=== PATIENT | male | born 1960 | race Caucasian/White ===

== ENCOUNTER → 2018-11-23 19:10 | Outpatient (CLI) | payer OTHER, SELFPAY ==
--- NOTE | 2018-11-23 19:18 | DI.MRI.S_ITS ---
PROCEDURE: MR LUMBAR SPINE WO CON INDICATIONS: INTERVERTEBRAL DISC DISORDERS WITH RADICULOPATHY TECHNIQUE: Noncontrast sagittal T1 spin echo and T2 fast echo, sagittal STIR, axial T1 and T2 fast spin echo through the lumbar spine. In cases with scoliosis, additional coronal T2 fast spin echo may be performed. COMPARISON: None. FINDINGS: Image quality: Excellent. Alignment and Curvature: There is normal bony alignment. Bone Marrow: Marrow is of normal overall signal. No acute vertebral body compression fractures. Spinal Cord: Conus medullaris terminates at the L1-L2 level. Visualized cord demonstrates normal signal and size. Paraspinous Soft Tissues: No paravertebral masses. L1-L2: Minimal degenerative endplate changes and decreased disc T2 hyperintensity. No significant neuroforaminal stenosis. No significant spinal canal stenosis. L2-L3: Minimal degenerative endplate changes with endplate osteophyte formation. This is more pronounced anteriorly. Minimal circumferential disc bulge. No significant neuroforaminal stenosis. No significant spinal canal stenosis. L3-L4: Mild bilateral facet arthrosis, worse on the right. There are degenerative endplate changes with endplate osteophytes, loss of disc height, and loss of normal disc T2 signal hyperintensity. Eccentric to the right circumferential disc bulge resulting in moderate right neuroforaminal stenosis with effacement of the right foraminal zone and minimal effacement of the right subarticular zone. No significant spinal canal stenosis. No significant left neural foraminal narrowing. L4-L5: Moderate bilateral facet arthrosis. There are degenerative endplate changes with endplate osteophytes, loss of disc height, and loss of normal disc T2 signal hyperintensity. There is circumferential disc bulge with concurrent posterior central disc protrusion measuring approximately 1.4 cm in transverse dimension and extending approximately 8 mm in AP dimension. This causes moderate effacement of the bilateral subarticular zone as well as mild spinal canal stenosis. There is mild bilateral neuroforaminal stenosis. L5-S1: Mild bilateral facet arthropathy. There are degenerative endplate changes with endplate osteophytes, loss of disc height, and loss of normal disc T2 signal hyperintensity. Shallow broad-based posterior disc herniation without significant neural foraminal or spinal canal stenosis. IMPRESSION: Multilevel, multifactorial lumbar spondylosis as described above by vertebral body level. Findings are most pronounced at L3-4 and L4-5. Dictated by: Neymar Partida M.D. on 11/26/2018 at 9:20 Approved by: Neymar Partida M.D. on 11/26/2018 at 9:43
== END ==
PROVIDERS: Visit Provider Family Medicine Geriatric Medicine
DX: M51.16 Intervertebral disc disorders with radiculopathy, lumbar region (principal); M47.26 Other spondylosis with radiculopathy, lumbar region
CPT/HCPCS: 72148

== ENCOUNTER 2019-02-06 13:30 | Emergency (ER) | payer OTHER, MEDICARE, SELFPAY ==
[2019-02-06 13:39] VITALS: BP 124/90; PULSE 99; RESP 14; TEMP 36.8; O2SAT 97
--- NOTE | 2019-02-06 13:46 | ED.BACK ---
HPI - Back Pain/Injury General Chief Complaint: Back Pain/Injury Stated Complaint: LOWER PART OF BACK IS HURTING Time Seen by Provider: 02/06/19 13:35 Source: patient Mode of arrival: Ambulatory Limitations: no limitations History of Present Illness HPI Narrative: 58-year-old male comes to the emergency department with complaint of acute on chronic back pain. Patient states he has had chronic low back issues. He is scheduled to have surgery in the next couple months his low back with neuro surgery and telling him. Patient states that he does not recall any recent trauma or injuries. He states he went outside and down his steps and then on his way back inside after walking some personal objects outside he started having tightening and discomfort increasing in his back particularly on the left side. Patient states that pain does radiate down his leg. He states he has numbness. He states that he feels a little bit weak. Patient states that both the numbness and the weakness are typical for him. He has not had any loss of bowel or bladder control. He is able to ambulate at home and here in the emergency department. He denies any recent fevers or chills. He took some ibuprofen at home which he states was helpful. He denies any other medical issues. Denies any prior surgeries. States he is allergic to penicillin. Denies any history of IV drug abuse. Related Data Previous Rx's Medication Instructions Recorded diazepam [Valium] 10 mg PO TID PRN #14 tab 02/06/19 oxycodone-acetaminophen [Percocet] 1 tab PO QID PRN #14 tab 02/06/19 prednisone 50 mg PO DAILY #5 tab 02/06/19 Allergies Allergy/AdvReac Type Severity Reaction Status Date / Time Penicillins Allergy Verified 02/06/19 13:39 Review of Systems Review of Systems ROS Unobtainable: All systems reviewed & are unremarkable except as noted in HPI and below Patient History Medical History (Updated 02/06/19 @ 14:00 by Bailey Pruitt DO) Low back pain (Acute) Social History Smoking Status: Current every day smoker Smoking Status: Current every day smoker alcohol intake frequency: 0-2 drinks per day Substance Use Type: does not use Exam Narrative Exam Narrative: GEN: well nourished, well appearing male, alert and oriented x 3, patient appears to be in mild distress. HEENT: Atraumatic, pupils are equal round reactive to light, extraocular movements are intact, nares are clear, moist mucous membranes. HEART: Regular rate and rhythm without murmur, clicks, rubs. LUNGS:Lungs clear to auscultation, no wheezes, rales, crackles, chest moves symmetrically ABD:bowel sounds normal, soft, non-tender, no guarding, rebound, rigidity, no masses noted, no hepatosplenomegaly :No CVA tenderness BACK: No cervical, thoracic or lumbar vertebral point tenderness. Patient has mild to moderate discomfort in the left lower lumbar region and just superior to the SI joint. No bony tenderness of the help her pelvis. Patient has nontender the piriformis bilaterally. Patient has decreased range of motion. Patient is able to sit up in the bed unassisted and move and stand but moves slowly. Patient's gait is normal. Rectal exam is deferred. Muscle strength is 5/5 in lower extremities, patient has slightly decreased dorsiflexion on left foot in comparison to right, DTRs are 2/4lower extremities. Dorsalis pedis and tibialis pulses are 2+ and lower extremities. Sensation is intact in the lower extremities to light touch. MSCL: Non-tender, no muscle atrophy, see above. NEURO:CN 2-12 intact, sensation normal SKIN: no rash, no erythema, no skin changes noted on back or extremities. Initial Vital Signs Initial Vital Signs: Vital Signs Temperature 98.2 F 02/06/19 13:39 Pulse Rate 99 H 02/06/19 13:39 Respiratory Rate 14 02/06/19 13:39 Blood Pressure 124/90 02/06/19 13:39 Pulse Oximetry 97 02/06/19 13:39 Course Orders Ordered: ED Orders 02/06/19 13:46 XR lumbar spine 2-3V Stat Discontinued Medications Diazepam (Valium) 10 mg PO NOW ONE Stop: 02/06/19 13:49 Last Admin: 02/06/19 14:02 Dose: 10 mg Documented by: LAMAR Ketorolac Tromethamine (Toradol) 30 mg IM NOW ONE Stop: 02/06/19 15:08 Last Admin: 02/06/19 15:35 Dose: 30 mg Documented by: SUSANA Oxycodone/Acetaminophen (Percocet 5/325) 1 tab PO NOW ONE Stop: 02/06/19 13:49 Last Admin: 02/06/19 14:02 Dose: 1 tab Documented by: LAMAR Vital Signs Vital signs: Vital Signs - 8 hr 02/06/19 13:39 02/06/19 15:00 Temperature 98.2 F Pulse Rate 99 H 87 Respiratory Rate 14 13 Blood Pressure 124/90 Blood Pressure [Left Arm] 108/60 Pulse Oximetry 97 97 [facility] - Back Pain/Injury Imaging Data Lspine xray: Radiologist's Impression: [address] [address] XRay Report Signed Patient: Mick Santoro#: [id number] : 1960Acct:[id number] Age/Sex: 58 / MDate of Service: 02/06/19 Loc: ED Accession Number: [id number] Procedure: XR lumbar spine 2-3V Ordering Provider: Bailey Pruitt D.O. PROCEDURE: XR LUMBAR SPINE 2-3V INDICATIONS: low back pain, acute on chronic, left side TECHNIQUE: 3 views of the lumbar spine were acquired. COMPARISON: [facility], MR, MR LUMBAR SPINE WO CON, 11/23/2018, 19:28. FINDINGS: Bones: 5 [id number] vertebrae are present. There is normal bony alignment. No vertebral body compression fractures. No suspicious bony lesions. Moderate disc space narrowing is seen at the L4-L5 and L5-S1 levels. Associated endplate irregularity and sclerosis are seen. The disc heights otherwise appear well-preserved. Lower lumbar spine facet arthropathy is seen. Age-appropriate lower thoracic spine degenerative changes are seen. Soft tissues: Overlying bowel gas pattern is normal. No suspicious soft tissue calcifications. Atherosclerotic calcification is noted. IMPRESSION: Lower lumbar spine degenerative changes are seen, without an acute abnormality seen by plain film. Dictated by: Moises Garcia M.D. on 02/06/2019 at 13:04 Approved by: Moises Garcia M.D. on 02/06/2019 at 13:05 [facility] Narrative Medical decision making narrative: Patient has multilevel, multifactorial lumbar spondylosis findings are most pronounced at L3-4 and L4-5 patient has mild bilateral neural foraminal stenosis at L4-L5. None noted L1 through L4. There's also some disc bulge at L3-4. There is circumferential disc bulge with concurrent posterior central disc protrusion measuring approximately 1.4 cm extending 8 mm causing moderate effacement of bilateral subarticular zone as well as mild spinal canal stenosis at L4-L5. This is from MRI from November of 2018. On exam today patient does not have any redflag symptoms or changes that warrant repeat MRI today or emergent surgical intervention. Discussed findings with imaging today and signs/symptoms to watch for and return emergently. Patient and I discussed that he may benefit from sooner follow up as he does have some spinal canal stenosis on recent MRI from November. Patient ambulated without much issue from department. Discharge Plan Departure Patient Disposition: Home Clinical Impression: Low back pain Qualifiers: Chronicity: chronic Back pain laterality: left Sciatica presence: with sciatica Sciatica laterality: sciatica of left side Qualified Code(s): M54.42 - Lumbago with sciatica, left side Discharge Date/Time: 02/06/19 15:57 Instructions: DI for Back Pain With Sciatica Activity Restrictions/Additional Instructions: Follow up with your surgeon in the next week for recheck, if you prefer you may follow with your primary care physician first. Take steroids once daily until gone. Take medications as prescribed, these medications can make you sleepy do not drive, perform hazardous activities or make any major decisions while taking them. You may also take ibuprofen up to 600mg every 6 hours as needed for pain. Return to the ER for fevers greater 100.4 F, rapidly worsening symptoms, new weakness, numbness, loss of sensation, loss of bowel or bladder control or other new or advancing symptoms. Prescriptions: New prednisone 50 mg tablet 50 mg PO DAILY Qty: 5 RF: 0 oxycodone-acetaminophen [Percocet] 5-325 mg tablet 1 tab PO QID PRN (Reason: pain) Qty: 14 RF: 0 diazepam [Valium] 10 mg tablet 10 mg PO TID PRN (Reason: muscle spasm) Qty: 14 RF: 0 Referrals: Jacinto Alexandra DO [Primary Care Provider] -
[2019-02-06] MEDS: OXYCODONE/ACETAMINOPHEN 5/325 TABLET 1 TAB PO (14:02)
[2019-02-06] MEDS: diazePAM 5 MG TABLET 10 MG PO (14:02)
[2019-02-06 15:00] VITALS: BP 108/60; PULSE 87; RESP 13; O2SAT 97
[2019-02-06] MEDS: KETOROLAC 60 MG/2 ML VIAL 30 MG IM (15:35)
== END 2019-02-06 15:57 | disposition home or self-care (01) ==
PROVIDERS: Emergency Provider Emergency Medicine; PCP Neurological Surgery
DX: M54.42 Lumbago with sciatica, left side (principal); X50.9XXA Other and unspecified overexertion or strenuous movements or postures, initial encounter; Y93.01 Activity, walking, marching and hiking; Y99.0 Civilian activity done for income or pay
CPT/HCPCS: 72100; 96372; 99283; 99284; J1885